=== PATIENT | female | born 1975 | race Caucasian/White ===

== ENCOUNTER 2021-07-02 11:32 | Outpatient (CLI) | payer BC, SELFPAY ==
--- NOTE | 2021-07-02 11:30 | ECG_ITS ---
Measurements Intervals [place] Rate: 82 P: 56 MI: 166 QRS: -28 QRSD: 101 T: 52 QT: 362 QTc: 425 Interpretive Statements SINUS RHYTHM WITH SINUS ARRHYTHMIA POSSIBLE LEFT ATRIAL ENLARGEMENT LOW QRS VOLTAGE IN PRECORDIAL LEADS INCOMPLETE RIGHT BUNDLE BRANCH BLOCK POSSIBLE LEFT VENTRICULAR HYPERTROPHY POOR R WAVE PROGRESSION, ANTERIOR LEADS CONSIDER INFERIOR INFARCT, AGE INDETERMINATE ABNORMAL ECG Electronically Signed On 07-02-2021 12:02:56 CDT by Dharmesh Barraza D.O.
[2021-07-02 12:02] LABS: Basophils Percent Auto 0.5 % (0.2-1.2); Eosinophils Percent Auto 0.5 % (0-4.4); Hematocrit 38.3 % (37.0-47.0); Hemoglobin 12.8 g/dL (12.0-15.0); Immature Granulocyte Absolute 0.02 K/mm3 (0.00-0.031); Immature Granulocyte Percent A 0.2 % (0-0.5); Lymphocytes Percent Auto 24.2 % (18.3-44.2); Mean Corpuscular HGB Conc 33.4 g/dl (32-36); Mean Corpuscular Hemoglobin 30.3 pg (26-34); Mean Corpuscular Volume 90.8 fl (80-100); Mean Platelet Volume 10.2 fl (7.4-10.4); Monocytes Absolute Auto 0.5 K/mm3 (0.1-0.6); Neutrophils Percent Auto 68.6 % (45.5-73.1); Platelet Count Result 312 k/mm3 (150-375); Red Blood Count 4.22 M/mm3 (4.2-5.4); Red Cell Distribution Width 12.5 % (11.5-14.5); White Blood Count 8.7 K/mm3 (4.5-10.0)
== END 2021-07-02 11:33 | disposition home or self-care (01) ==
LOC: ANHSURGERY 11:37
PROVIDERS: Visit Provider Obstetrics & Gynecology
DX: N94.6 Dysmenorrhea, unspecified (principal); I10 Essential (primary) hypertension; Z01.818 Encounter for other preprocedural examination; I45.10 Unspecified right bundle-branch block
CPT/HCPCS: 36415; 85025; 86850; 86900; 86901; 93005

== ENCOUNTER 2021-07-04 03:07 | Day surgery (SDC) | payer BC, SELFPAY ==
[2021-07-02 09:45] VITALS: BMI 33.6
--- NOTE | 2021-07-02 12:34 | P.HP_ITS ---
H&P: HPI History of Present Illness Date/Time: 07/02/21 12:34 46-year-old multiparous admitted for robotic total vaginal hysterectomy and bilateral salpingectomies as well as tension-free vaginal tape. She has had enlarged uterus with heavy bleeding refractory to medical therapy. She complains of stress urinary incontinence. Risks and benefits of these procedures have been reviewed in great detail Chief Complaint: a enlarged uterus stress incontinence Review of Systems Review of Systems: All systems reviewed & are unremarkable except as noted in HPI and below [facility] Social History Social History Smoking status: Never smoker Alcohol intake: never Substance use: never Substance use type: does not use Additional living arrangements comments: CHILDREN Spiritual care concerns: No Meds Home Medications and Allergies Home Medications Medication Instructions Recorded Confirmed Type alprazolam [Xanax] 0.25 mg PO HS PRN 07/02/21 07/02/21 History citalopram [Celexa] 20 mg PO HS 07/02/21 07/02/21 History diclofenac sodium 50 mg PO BID PRN 07/02/21 07/02/21 History lisinopril 20 mg PO HS 07/02/21 07/02/21 History Allergies Allergy/AdvReac Type Severity Reaction Status Date / Time doxycycline Allergy Severe Anaphylaxis Verified 07/02/21 09:43 Exam Const: General: no acute distress Eyes: General: appearance normal, both eyes and all related structures Neck: Neck: supple and no JVD Thyroid: thyroid normal Resp: Effort & Inspection: normal respiratory effort Auscultation: clear to auscultation bilaterally Cardio: Rate: regular rate Rhythm: regular rhythm GI: Inspection: non-distended GI Palp: Yes Soft to palpation, No Tenderness to palpation present (GI) and No Guarding due to palpation present (GI) Auscultation: normal bowel sounds : External Female Exam: normal external appearance Speculum Exam - Vagina: normal appearance of the vagina and vaginal bleeding Speculum Exam - Cervix: normal appearance of the cervix Bimanual exam- vagina & uterus: boggy and enlarged Skin: General skin exam: no rashes or lesions noted Extrem: General: normal to inspection and no edema Psych: Mental Status: mental status grossly normal Affect: normal affect Assessment and Plan Additional Plan impression: Enlarged uterus with bleeding and stress urinary incontinence Plan: Robotic total vaginal hysterectomy and bilateral salpingectomies, cystoscopy, TVT
[2021-07-04] VITALS (11 sets, daily range): BP systolic 130–160; BP diastolic 66–93; PULSE 85–104; RESP 14–18; TEMP 36.6–37.3; O2SAT 95–98; BMI 33.3
--- NOTE | 2021-07-04 07:18 | WPDHPUPDATE1 ---
History and Physical Update Update Date/Time: 07/04/21 07:18 History and Physical has been reviewed, including an updated exam of the patient. There are NO changes in the patient's condition. Risks, benefits, and alternatives have been discussed and questions answered. Patient agrees to proceed with procedure.
--- NOTE | 2021-07-04 08:18 | WPDANESEPPF ---
Anes - Initial Pre Proc Eval Procedure: Operation Date: 07/04/21 09:30 Proposed Procedures p Robotic Assisted Total Vaginal Hysterectomy With Bilateral Salpingectomy - Rito Razo MD s Tension Free Vaginal Taping - Rito Razo MD Date/Time: 07/04/21 08:18 Surgeon: Rito Razo MD Pre Op Diagnosis: Exc Bleeding, Dysmenorrhea, Pelvic Pain, KETAN Patient Data Age: 46 Gender: F Height: 1.7 m Weight: 97.52 kg Allergies Allergy/AdvReac Type Severity Reaction Status Date / Time doxycycline Allergy Severe Anaphylaxis Verified 07/02/21 09:43 Home Medications Medication Instructions Recorded Confirmed Type alprazolam [Xanax] 0.25 mg PO HS PRN 07/02/21 07/02/21 History citalopram [Celexa] 20 mg PO HS 07/02/21 07/02/21 History diclofenac sodium 50 mg PO BID PRN 07/02/21 07/02/21 History lisinopril 20 mg PO HS 07/02/21 07/02/21 History hydrocodone-acetaminophen 1 tablet PO Q4H PRN #30 tablet 07/04/21 Rx Patient hx anesthesia problems: none Family hx anesthesia problems: none Results Review: All pre-operative results and documents have been reviewed as part of the pre-operative evaluation. [facility] Past Medical History Medical History (Updated 07/04/21 @ 08:18 by Rito Rosenthal MD) Anxiety HTN (hypertension) Obesity Surgical History Surgical History (Updated 07/04/21 @ 08:19 by Rito Rosenthal MD) History of section Social History Social History Smoking status: Never smoker Alcohol intake: never Substance use: never Substance use type: does not use Living arrangements: with family Additional living arrangements comments: CHILDREN Spiritual care concerns: No Anes - Eval Final PreProcedure Day of Procedure 07/04/21 08:18 Patient weight: obese Heart: regular rate and rhythm Lungs: clear to auscultation Airway: Mallampati scale class II Neurological: alert and oriented Last oral intake: >/= 8 hours ASA classification: II Emergent: no Anesthetic plan: proceed Anesthesia type and monitoring: general GIVS and standard monitoring Results Review: All pre-operative results and documents have been reviewed as part of the pre-operative evaluation. Informed Consent: The patient's anesthetic plan and its attendant risks and benefits were discussed with the patient/family/POA. Questions were solicited and answers provided to the satisfaction of the patient/family/POA.
[2021-07-04] MEDS: ACETAMINOPHEN 500 MG TABLET 1000 MG PO (08:45)
[2021-07-04] MEDS: KETOROLAC 15 MG/ML VIAL (*BKC) IV PUSH (08:45)
[2021-07-04] MEDS: LACTATED RINGERS 1,000 ML 30 ML IV CONT ×2 (09:12→11:28)
[2021-07-04] MEDS: ceFAZolin 2 GM/D5W 50 ML 2 GM/50 ML BAG IVPB (09:30)
--- NOTE | 2021-07-04 11:21 | W.PM.PROC2 ---
Procedure Note - Detailed Date of Procedure 07/04/21 Pre-op Diagnosis Exc Bleeding, Dysmenorrhea, Pelvic Pain, KETAN Post-op Diagnosis same Procedure Performed Robotic total vaginal hysterectomy and bilateral salpingectomy Cystoscopy Tension-free vaginal tape Surgeon Rito Razo MD Anesthesia general Indications Self 38 old female with enlarged uterus excessive heavy bleeding and stress urinary incontinence Findings Markedly enlarged uterus. Tubes status post tubal ligation. Rather large amount of adhesions anteriorly from the omentum to the anterior abdominal. Normal-appearing ovaries bilaterally. Tubes status post tubal ligation. A small paratubal cyst which was ruptured drained of clear fluid Description of Procedure The patient was prepped draped sterile fashion placed in the dorsal lithotomy position. Under excellent general endotracheal anesthesia weighted speculum placed in posterior fornix of vagina. Anterior lip of the cervix grasped with a single-tooth tenaculum and uterus sounded to 11cm. Serial dilatation with fragmented dilators performed followed by passage of the 10. BRIAN and the 3. Cold. An 18 Mongolian catheter was placed in the bladder draining clear urine. The weighted speculum was removed and the gloves were changed. A supraumbilical incision made the Veress needle passed in the abdomen. The abdomen filled with CO2 gas [id number]. The 8mm trocar advanced in the abdomen downside visualized. No injury seen. Patient placed in Trendelenburg and right left lateral quadrant incisions made and the 8mm trocars advanced under direct visualization assuring no injury. Right upper quadrant incision made the 8mm trocar advanced under direct visualization assuring no injury. The robot was docked. Attention was turned to the commercial counsel. There did large amount of adhesions anteriorly from omentum to the anterior abdominal wall. Using sharp dissection and monopolar cautery with occasional bipolar cautery this was brought down sharply until the uterus could be seen. Posteriorly the cervix and uterus were adherent to omentum and these were were sharply dissected and relieved. The ovaries had a small normal appearance. On the right was a small paratubal cyst and this was cauterized and drained of clear fluid. The left fallopian tube was then sharply dissected away from the ovary. This was repeated on the contralateral side. Next conserving the left ovary the utero-ovarian ligament was clamped, burned, cut. This was brought to the level of the round ligament. The left round ligament was then grasped, burned, cut. Anteriorly a bladder flap was formed by sharply dissecting the peritoneum and reflecting the bladder caudally away from the cervix uterus to the opposite round ligament which was clamped, burned cut. The round ligament was clamped, burned,. Next the right fallopian tube was dissected away from the ovary and tube. The utero-ovarian ligament was clamped, burned, cut the right. This was brought to the level of previously cut round ligament. This conserve the right ovary. The cardinal and broad ligaments on the left were then serially skeletonized clamped burned and cut and brought down lateral edge of the uterus until the uterine vessels could be seen. These were noted to be large tortuous vessels in each was individually clamped, burned and cut. In like fashion cardinal broad ligaments on the right were serially skeletonized clamped, burned, cut and brought down the lateral edge of the cervix and uterus until the uterine vessels could be seen on the right. These were individually clamped, burned, cut and excellent blanching of the uterus was seen. A colpotomy incision was made and the cervix uterus and tubes removed through the vagina. The vagina then closed with continuous running 0V lock from lateral edge to lateral edge back to the midline. Irrigation undertaken until clear Parlin term was placed over the raw surfac
--- NOTE | 2021-07-04 12:46 | PC.NURSE ---
This patient, Teri Roche, was received from PACU per bed to room 283. Patient/family oriented to unit policies and routines
[2021-07-04] MEDS: KETOROLAC 30 MG/ML VIAL (*BKC) IV PUSH (13:52)
[2021-07-04] MEDS: HYDROcodone/acetaminophen (*CRX) 10-325 MG TABLET 1 TAB PO ×4 (13:53→23:16)
[2021-07-04] MEDS: DEXTROSE 5%/LACTATED RINGERS 1,000 ML 125 ML IV CONT (13:54)
[2021-07-04] MEDS: SIMETHICONE 80 MG TAB.CHEW PO ×2 (20:15→23:16)
[2021-07-04] MEDS: IBUPROFEN 600 MG TABLET PO (20:15)
[2021-07-04] MEDS: DOCUSATE SODIUM 100 MG CAPSULE PO (20:15)
[2021-07-04] MEDS: ALPRAZolam (*CRX) 0.25 MG TABLET PO (23:40)
[2021-07-05 03:30] VITALS: BP 121/72; PULSE 88; RESP 18; TEMP 36.4
[2021-07-05] MEDS: SIMETHICONE 80 MG TAB.CHEW PO ×2 (03:30→07:40)
[2021-07-05] MEDS: CALCIUM CARBONATE (TUMS) 500 MG (200 MG ELEMENTAL) (03:30)
[2021-07-05] MEDS: HYDROcodone/acetaminophen (*CRX) 10-325 MG TABLET 1 TAB PO (03:30)
[2021-07-05] MEDS: IBUPROFEN 600 MG TABLET PO (03:30)
[2021-07-05 05:44] LABS: Basophils Percent Auto 0.2 % (0.2-1.2); Hematocrit 30.2 % (37.0-47.0); Hemoglobin 9.7 g/dL (12.0-15.0); Immature Granulocyte Absolute 0.08 K/mm3 (0.00-0.031); Immature Granulocyte Percent A 0.6 % (0-0.5); Lymphocytes Absolute Auto 1.22 K/mm3 (0.9-3.2); Lymphocytes Percent Auto 9.7 % (18.3-44.2); Mean Corpuscular HGB Conc 32.1 g/dl (32-36); Mean Corpuscular Hemoglobin 29.8 pg (26-34); Mean Corpuscular Volume 92.9 fl (80-100); Mean Platelet Volume 10.9 fl (7.4-10.4); Monocytes Absolute Auto 0.8 K/mm3 (0.1-0.6); Monocytes Percent Auto 6.6 % (2.6-8.5); Neutrophils Absolute Auto 10.4 K/mm3 (1.3-6.7); Neutrophils Percent Auto 82.9 % (45.5-73.1); Platelet Count Result 242 k/mm3 (150-375); Red Blood Count 3.25 M/mm3 (4.2-5.4); Red Cell Distribution Width 12.4 % (11.5-14.5); White Blood Count 12.6 K/mm3 (4.5-10.0)
--- NOTE | 2021-07-05 07:06 | PM.DS ---
DS: Admitting Diagnosis Discharge Date 07/05/2020 Admitting Diagnosis enlarged uterus/ pelvic pain/ stress urinary incontinence DS: Summary Hospital Course Hospital Course: patient was admitted for robotic hysterectomy bilateral salpingo-oophorectomy and TVT. Her hospital course was unremarkable. She remained afebrile. She was up, voiding without difficulty, ambulating, and generally without complaints. Routine discharge instructions were given and she is to follow-up in 2 weeks time Time Spent with Patient Time attestation: Total time spent providing and/or coordinating discharge services: Exam Const: General: no acute distress Eyes: General: appearance normal, both eyes and all related structures Neck: Neck: supple and no JVD Thyroid: thyroid normal Resp: Effort & Inspection: normal respiratory effort Auscultation: clear to auscultation bilaterally Cardio: Rate: regular rate Rhythm: regular rhythm GI: Inspection: non-distended GI Palp: Yes Soft to palpation, No Tenderness to palpation present (GI) and No Guarding due to palpation present (GI) Auscultation: normal bowel sounds : General: Yes bladder normal to palpation External Female Exam: normal external appearance Speculum Exam - Vagina: normal vaginal discharge and No vaginal bleeding Speculum Exam - Cervix: nontender Bimanual exam- vagina & uterus: bladder normal to palpation and No Cervical tenderness present OB/external & speculum: No vaginal bleeding Skin: General skin exam: no rashes or lesions noted Extrem: General: normal to inspection and no edema Psych: Mental Status: mental status grossly normal Affect: normal affect DS: Data Data Completed and Pending Pending studies at discharge: Pending at discharge 07/04/21 10:17 Surgical [PTH] Routine Labs on day of discharge: Labs from last 24 hours 07/05/21 03:44 WBC 12.6 H RBC 3.25 L Hgb 9.7 L D Hct 30.2 L MCV 92.9 MCH 29.8 MCHC 32.1 RDW 12.4 Plt Count 242 MPV 10.9 H Immature Gran % (Auto) 0.6 H Neut % (Auto) 82.9 H Lymph % (Auto) 9.7 L Hendry % (Auto) 6.6 Eos % (Auto) 0.0 Baso % (Auto) 0.2 Lymph # (Auto) 1.22 [place] # (Auto) 0.8 H Eos # (Auto) 0.0 Baso # (Auto) 0.0 Abs Immat Gran (auto) 0.08 H Absolute Neuts (auto) 10.4 H Absolute Nucleated RBC 0.0 Nucleated RBC % 0.0 Discharge Plan Discharge Patient Disposition: Home, Self-Care Stand Alone Forms: General Discharge Instructions Follow-up/Referrals: Rito Razo MD [Physician] - Discharge Medications: New hydrocodone-acetaminophen 5-325 mg tablet 1 tablet PO Q4H PRN (Reason: pain) Qty: 30 RF: 0 No Action lisinopril 20 mg Tablet 20 mg PO HS RF: 0 alprazolam [Xanax] 0.25 mg Tablet 0.25 mg PO HS PRN (Reason: Anxiety) RF: 0 citalopram [Celexa] 20 mg Tablet 20 mg PO HS RF: 0 diclofenac sodium 50 mg Tablet,Delayed Release (Dr/Ec) 50 mg PO BID PRN (Reason: Pain) RF: 0
--- NOTE | 2021-07-05 07:08 | PM.GYNPNOP ---
CLINICAL RESEARCH MANAGER - A/P Postoperative Procedures: Procedures Operation Date: 07/04/21 09:30 Actual Procedure Side Surgeon p Robotic Assisted Total Vaginal Hysterectomy With Bilateral Salpingectomy Bilateral Rito Razo MD s Tension Free Vaginal Taping Rito Razo MD Postoperative day: 1 Postoperative status: doing well Postoperative plan: routine post-op care and discharge Time Spent With Patient Time: Total time spent is greater than 50% in coordination of care (as documented) at patient's floor/unit and/or counseling patient: Time with patient: less than 15 minutes CLINICAL RESEARCH MANAGER- PN:Subj Post-Op Subjective Date/time seen: 07/05/21 07:08 Subjective: patient reports feeling better and patient has no complaints Review of Systems Review of Systems: All systems reviewed & are unremarkable except as noted in HPI and below Exam Const: General: no acute distress Eyes: General: appearance normal, both eyes and all related structures Neck: Neck: supple and no JVD Thyroid: thyroid normal Resp: Effort & Inspection: normal respiratory effort Auscultation: clear to auscultation bilaterally Cardio: Rate: regular rate Rhythm: regular rhythm GI: Inspection: non-distended GI Palp: Yes Soft to palpation, No Tenderness to palpation present (GI) and No Guarding due to palpation present (GI) Auscultation: normal bowel sounds Skin: General skin exam: no rashes or lesions noted Extrem: General: normal to inspection and no edema Psych: Mental Status: mental status grossly normal Affect: normal affect CLINICAL RESEARCH MANAGER - PN: Obj Data Vital Signs Vital Signs: Vital Signs - 24 hr 07/04/21 09:29 07/04/21 11:28 07/04/21 11:40 Temperature 99.1 F 98.4 F Pulse Rate 85 101 H 95 Respiratory Rate 14 16 17 Blood Pressure 133/68 160/88 H 132/79 Pulse Oximetry 97 96 96 07/04/21 11:55 07/04/21 12:10 07/04/21 12:25 Temperature Pulse Rate 96 94 91 Respiratory Rate 18 18 17 Blood Pressure 156/93 H 148/85 H 144/79 H Pulse Oximetry 97 95 96 07/04/21 12:38 07/04/21 12:50 07/04/21 17:20 Temperature 98.8 F 97.9 F Pulse Rate 93 92 95 Respiratory Rate 17 18 18 Blood Pressure 143/78 H 150/85 H 130/66 Pulse Oximetry 97 97 07/04/21 20:25 07/04/21 23:15 07/05/21 03:30 Temperature 98.5 F 98.2 F 97.6 F Pulse Rate 102 H 104 H 88 Respiratory Rate 16 16 18 Blood Pressure 130/82 136/80 121/72 Pulse Oximetry 98 97 Intake/Output Intake/Output: Intake & Output 07/02/21 07/03/21 07/04/21 07/05/21 23:59 23:59 23:59 23:59 Intake Total 2320 240 Output Total 1220 300 Balance 1100 -60 Meds/Results Medications: Active Medications Generic Name Dose Route Start Last Admin Trade Name Freq PRN Reason Stop Dose Admin Hydrocodone Bitart/Acetaminophen 1 tab 07/04/21 12:42 Hydrocodone/Acetaminophen (*Crx) 5-325 Mg Tablet PO Q3H PRN Pain Rated 5 or Less Hydrocodone Bitart/Acetaminophen 1 tab 07/04/21 12:42 07/05/21 03:30 Hydrocodone/Acetaminophen (*Crx) 10-325 Mg Tablet PO 1 tab Q3H PRN Administration Pain Rated 6 or Greater Docusate Sodium 100 mg 07/04/21 17:00 07/04/21 20:15 Docusate Sodium 100 Mg Capsule PO 100 mg BID BRICE Administration Enoxaparin Sodium 40 mg 07/05/21 09:00 Enoxaparin 40 Mg/0.4 Ml Syringe SUB-Q DAILY BRICE Dextrose/Lactated Ringer's 1,000 mls @ 125 mls/hr 07/04/21 12:42 07/04/21 20:25 Dextrose 5%/Lactated Ringers IV CONT Infused .Q8H BRICE Infusion Ibuprofen 600 mg 07/04/21 12:42 07/05/21 03:30 Ibuprofen 600 Mg Tablet PO 600 mg Q6H PRN Administration Cramping Ketorolac Tromethamine 30 mg 07/04/21 12:42 07/04/21 13:52 Ketorolac 30 Mg/Ml Vial (*Bkc) IV PUSH 07/09/21 12:41 30 mg Q6H PRN Administration Pain Rated 4-6 Naloxone HCl 0.1 mg 07/04/21 12:42 Naloxone Hcl 0.4 Mg/Ml Vial IV PUSH Q2M PRN Respiratory rate less than 10 Ondansetron HCl 4 mg 07/04/21 12:42 Ondansetron Inj 4 Mg/2 Ml Vial IV
[2021-07-05] MEDS: DOCUSATE SODIUM 100 MG CAPSULE PO (07:40)
[2021-07-05] MEDS: ENOXAPARIN 40 MG/0.4 ML SYRINGE SUB-Q (07:40)
[2021-07-05 08:00] VITALS: BP 123/76; PULSE 81; RESP 18; TEMP 36.8
--- NOTE | 2021-07-05 10:40 | PC.NURSE ---
Self care discharge instructions given including follow up visit with MD. Pt. verbalizes understanding. No questions voiced. Very pleasant and desiring discharge.
== END 2021-07-05 11:23 | disposition home or self-care (01) ==
LOC: ANHSURGERY 07:21 → ANHOB2 12:44
PROVIDERS: Visit Provider Obstetrics & Gynecology
PROC: (CPT 58552; principal; 2021-07-04 09:30)
PROC: 0TSD0ZZ Reposition Urethra, Open Approach (ICD-10-PCS; CPT 58552; 2021-07-04 09:30)
DX: N93.9 Abnormal uterine and vaginal bleeding, unspecified (principal); N94.6 Dysmenorrhea, unspecified; N80.0 Endometriosis of uterus; D25.1 Intramural leiomyoma of uterus; R10.2 Pelvic and perineal pain; N39.3 Stress incontinence (female) (male); N73.6 Female pelvic peritoneal adhesions (postinfective); N83.8 Other noninflammatory disorders of ovary, fallopian tube and broad ligament
CPT/HCPCS: 58552; 57288; S2900; 36415; 85025; 88307; 99199; A9270; C1771; J0690; J1100; J1170; J1650; J1885; J2250; J2405; J2704; J2710; J3010; J7030; J7120; J7121

== ENCOUNTER 2021-08-13 14:37 | Outpatient (CLI) | payer BC, SELFPAY ==
--- NOTE | 2021-08-13 | ECG_ITS ---
Measurements Intervals [place] Rate: 74 P: 56 MD: 170 QRS: -18 QRSD: 110 T: 29 QT: 418 QTc: 465 Interpretive Statements SINUS RHYTHM POSSIBLE LEFT ATRIAL ENLARGEMENT INCOMPLETE RIGHT BUNDLE BRANCH BLOCK LOW QRS VOLTAGE IN PRECORDIAL LEADS BORDERLINE R WAVE PROGRESSION, ANTERIOR LEADS BORDERLINE T WAVE ABNORMALITY- ANT/INF LEADS BASELINE WANDER- I, II, AVR, AVF BORDERLINE ECG Electronically Signed On 08-13-2021 15:14:36 LOG SKIDDER by Dharmesh Barraza D.O.
== END 2021-08-13 14:38 | disposition home or self-care (01) ==
LOC: ANHCARD 14:40
PROVIDERS: Visit Provider Obstetrics & Gynecology
DX: R55 Syncope and collapse (principal); I45.10 Unspecified right bundle-branch block
CPT/HCPCS: 93005

== ENCOUNTER → 2021-09-08 16:49 | Outpatient (REF) | payer BC, SELFPAY | LOC: ANHLAB 16:49 | PROVIDERS: Visit Provider Nurse Practitioner | DX: L98.9 Disorder of the skin and subcutaneous tissue, unspecified (principal); D22.39 Melanocytic nevi of other parts of face | CPT/HCPCS: 88305 ==

== ENCOUNTER 2022-06-02 16:08 | Outpatient (CLI) | payer BC, SELFPAY ==
--- NOTE | ~2022-06-02 | XR_ITS ---
XR sacrum coccyx min 2V DATE: 06/02/2022 16:26 INDICATION: Trauma, sacroiliac pain TECHNIQUE: AP, angled AP and lateral views COMPARISON: None FINDINGS: No fracture or bone destruction of the sacrum or coccyx. The sacral iliac joints are intact , without erosive change or ankylosis. Mild degenerative disease at L3-4. IMPRESSION: No significant abnormality of the sacrum or coccyx Reviewed, dictated and finalized at location B.
== END 2022-06-02 16:09 | disposition home or self-care (01) ==
LOC: ANHIMG 16:16
PROVIDERS: PCP Obstetrics & Gynecology; Visit Provider Obstetrics & Gynecology
DX: M53.3 Sacrococcygeal disorders, not elsewhere classified (principal)
CPT/HCPCS: 72220

== ENCOUNTER 2023-06-27 08:47 | Emergency (ER) | payer BC, SELFPAY ==
[2023-06-27 08:55] VITALS: BP 154/78; PULSE 60; RESP 20; TEMP 36.6; O2SAT 100
--- NOTE | 2023-06-27 09:37 | ED.GENADULT ---
HPI - General Adult General Chief complaint: Urogenital-Female Stated complaint: urinary issue Source: patient Mode of arrival: ambulatory Limitations: no limitations History of Present Illness HPI narrative: Patient presents for evaluation of low back pain and right-sided abdominal pain. Symptom onset 2 days ago. 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 She cannot identify any specific injury. pain in the back is constant, rated 8/10 severity, described as aching. Right upper quadrant pain is rated 4/10 severity without descriptive quality. She denies any fever, chills, nausea, vomiting, urinary symptoms, vaginal bleeding or discharge. No radicular pain. She is concerned she may have a UTI. Related Data Home Medications Medication Instructions Recorded Confirmed alprazolam 0.25 mg tablet (Xanax) 0.25 mg PO HS PRN Anxiety 07/02/21 06/27/23 citalopram 20 mg tablet (Celexa) 20 mg PO HS 07/02/21 06/27/23 lisinopril 20 mg tablet 20 mg PO HS 07/02/21 06/27/23 Allergies Allergy/AdvReac Type Severity Reaction Status Date / Time doxycycline Allergy Severe Anaphylaxis Verified 06/27/23 09:02 Review of Systems Review of Systems: CONSTITUTIONAL: Denies fever, chills, or sweats. EYES: Denies visual changes, redness, or discharge. ENT: Denies rhinorrhea, congestion, sore throat, or otalgia. CARDIOVASCULAR: Denies chest pain, palpitations, or edema. RESPIRATORY: Denies cough or dyspnea. GASTROINTESTINAL: Reports RUQ pain. Denies nausea, vomiting, or diarrhea. GENITOURINARY: Denies dysuria or hematuria. SKIN: Denies rash or itching. MUSCULOSKELETAL: Reports low back pain. Denies joint pain, or myalgia. NEUROLOGIC: Denies headache, numbness, dizziness, or weakness. PSYCHIATRIC: Denies anxiety or depression. [facility] Past Medical History Medical History Anxiety HTN (hypertension) Obesity Surgical History Surgical History History of section Family History Family History (Updated 06/27/23 @ 09:43 by DIVINE Reed, ) Mother Family history non-contributory Social History Social History (Updated 06/27/23 @ 09:44 by JOCELYNE ReedP, ) Smoking status: Never smoker Alcohol intake: never Substance use: never Substance use type: does not use Living arrangements: with family Additional living arrangements comments: CHILDREN Gender identity (if verbalized by the patient): Female Spiritual care concerns: No Exam Narrative: GENERAL: Well-appearing, well-nourished, and in no acute distress. HEAD: Normocephalic, atraumatic. EYES: PERRLA and EOMI. ENT: Nares clear, no rhinorrhea or epistaxis. Mucous membranes moist. Oropharynx without tonsillar hypertrophy exudate or other lesions. Bilateral TMs pearly flores nonbulging NECK: Supple. No adenopathy or masses. No carotid bruits or JVD CHEST: Clear to auscultation. No respiratory distress. No wheezes rales or rhonchi HEART: Regular rate and rhythm. No murmur heard. Normal peripheral pulses. ABDOMEN: Soft, nondistended, normal active bowel sounds. Right upper quadrant tenderness without rebound or guarding BACK: No midline bony or paraspinous tenderness. No CVA tenderness EXTREMITIES: Normal range of motion. No edema. SKIN: Warm, dry, no rash. NEURO: No focal deficits. Alert and oriented x3. PSYCH: Normal mood and affect. Course Course Emergency Course: this is a 48-year-old female who presented for evaluation of low back pain and right upper quadrant pain with concerns that she had a UTI. Urine here today not consistent with infectious process. Etiology unclear. Due to RUQ pain and tenderness I recommended she go to the ER for further evaluation. She was agreeable to this plan. I contacted [facility] and spoke with physician assistant manager bilingual, Candi Plaza
== END 2023-06-27 09:35 | disposition short-term general hospital (02) ==
PROVIDERS: Emergency Provider Nurse Practitioner; PCP Obstetrics & Gynecology
DX: R10.11 Right upper quadrant pain (principal); I10 Essential (primary) hypertension; E66.9 Obesity, unspecified; Z68.32 Body mass index [BMI] 32.0-32.9, adult; F41.9 Anxiety disorder, unspecified
CPT/HCPCS: 81003; 87086; 99213; G0463

== ENCOUNTER 2023-06-27 10:09 | Emergency (ER) | payer BC, SELFPAY ==
[2023-06-27] VITALS (13 sets, daily range): BP systolic 141–167; BP diastolic 76–92; PULSE 61–89; RESP 14–18; TEMP 36.6–36.7; O2SAT 97–100
--- NOTE | ~2023-06-27 | CT_ITS ---
EXAMINATION: CT abdomen pelvis w con DATE: 06/27/2023 11:35 INDICATION: Flank pain. Nausea. TECHNIQUE: Computed tomography (CT) of the abdomen and pelvis was performed with 100 mL Omnipaque 350 intravenous contrast. Automated exposure control and iterative reconstruction technique were employe d. The dose-length product was 835.36 mGy-cm. COMPARISON: None. FINDINGS: The visualized portions of the lung bases demonstrate mild atelectasis. No pleural effusion . The heart size is normal. No pericardial effusion. There is diffuse hepatic steatosis. The spleen i s normal. There is a 5.4 x 4.6 cm mass abutting the uncinate process of the pancreas and the inferior vena cava and the aorta. There is fat stranding adjacent to the mass. The adrenal glands are normal. There are cysts in the kidneys measuring up to 3.1 cm on the right. There is an infraumbilical ventr al hernia containing fat. There is diverticulosis of the colon without evidence of diverticulitis. Th ere are no dilated loops of bowel. The appendix is normal. There is aortocaval and left paracolic lym phadenopathy. For example, a left para-parotid node measures 1.8 x 1.5 cm. There is no ascites. There is mild thoracic spondylosis. IMPRESSION: 1. Mass between the pancreas, inferior vena cava, and aorta. This finding may be an enlarged aortocav al lymph node suspicious for malignancy or a pancreatic mass such as a pseudocyst or pancreatic adeno carcinoma. Consider abdomen MRI without and with contrast to determine if this mass is cystic or john d. 2. Abdominal lymphadenopathy, which may be reactive lymphadenopathy or metastatic disease or lymphoma . 3. Infraumbilical ventral hernia containing fat. Reviewed, dictated and finalized at location A. IMPRESSION: 1. Mass between the pancreas, inferior vena cava, and aorta. This finding may b e an enlarged aortocaval lymph node suspicious for malignancy or a pancreatic m ass such as a pseudocyst or pancreatic adenocarcinoma. Consider abdomen MRI wit hout and with contrast to determine if this mass is cystic or solid. 2. Abdominal lymphadenopathy, which may be reactive lymphadenopathy or metastat ic disease or lymphoma. 3. Infraumbilical ventral hernia containing fat.
[2023-06-27 10:36] LABS: Appearance Urine Clear (Clear); Bilirubin Urine Negative (Negative); Blood Urine Negative (Negative); Color Urine Yellow (Yellow); Glucose Urine UA Negative (Negative); Ketones Urine Negative (Negative); Leukocyte Esterase Ur Negative LEU/UL (Negative); Nitrate Urine Negative (Negative); Protein Urine Negative (Negative); Specific Grav Ur 1.023 (1.001-1.035); pH Urine 5.5 (5.0-9.0)
--- NOTE | 2023-06-27 10:39 | ED.BACK ---
HPI - Back Pain/Injury General Chief Complaint: Back Pain/Injury Stated Complaint: kidney pain Time Seen by Provider: 06/27/23 10:18 Source: patient Mode of arrival: ambulatory Limitations: no limitations History of Present Illness HPI Narrative: This is a 48-year-old female that presents to the emergency department for mid back pain. Ongoing over the last couple of days. No recent injuries or trauma. Pain is associated with nausea. It is achy and constant in nature. She took Tylenol this morning with little relief. Initially seen at urgent care and sent here for further evaluation. Denies fevers, vomiting, shortness of breath, diarrhea, dysuria, or hematuria. Related Data Home Medications Medication Instructions Recorded Confirmed alprazolam 0.25 mg tablet (Xanax) 0.25 mg PO HS PRN Anxiety 07/02/21 06/27/23 citalopram 20 mg tablet (Celexa) 20 mg PO HS 07/02/21 06/27/23 lisinopril 20 mg tablet 20 mg PO HS 07/02/21 06/27/23 Allergies Allergy/AdvReac Type Severity Reaction Status Date / Time doxycycline Allergy Severe Anaphylaxis Verified 06/27/23 09:02 Review of Systems Review of Systems: CONSTITUTIONAL: Denies fever CARDIOVASCULAR: Denies chest pain, or edema. RESPIRATORY: Denies dyspnea. GASTROINTESTINAL: Reports nausea. Denies abdominal pain, vomiting, or diarrhea. GENITOURINARY: Denies dysuria or hematuria. SKIN: Denies rash MUSCULOSKELETAL: Reports back pain, joint pain, and myalgia. All systems reviewed & are unremarkable except as noted in HPI and below PMFSH Past Medical History Medical History Anxiety HTN (hypertension) Obesity Surgical History Surgical History History of section Family History Family History (Updated 06/27/23 @ 09:43 by DIVINE Reed, ) Mother Family history non-contributory Social History Social History (Updated 06/27/23 @ 09:44 by DIVINE Reed, ) Smoking status: Never smoker Alcohol intake: never Substance use: never Substance use type: does not use Living arrangements: with family Additional living arrangements comments: CHILDREN Gender identity (if verbalized by the patient): Female Spiritual care concerns: No Exam Narrative: GENERAL: Well-appearing, well-nourished, and in no acute distress. HEAD: Normocephalic, atraumatic. EYES: EOMI. CHEST: Clear to auscultation. No respiratory distress. No wheezes rales or rhonchi HEART: Regular rate and rhythm. No murmur heard. Normal peripheral pulses. ABDOMEN: Soft, nontender, nondistended, normal active bowel sounds. EXTREMITIES: Normal range of motion. No edema. SKIN: Warm, dry, no rash. NEURO: No focal deficits. Alert and oriented x3. PSYCH: Normal mood and affect Course Course Emergency Course: Patient and family updated on workup. All questions answered. Prefers further evaluation inpatient Consultations Consultation #1: Spoke with Dr. Gallegos about patient and workup. Recommends further evaluation at a tertiary care facility Date: 06/27/23 Consultation #2: Spoke with Dr. Cristobal, [facility], about patient and workup who accepts transfer Date: 06/27/23 Vital Signs Vital signs: Vital Signs Temperature 97.8 F 06/27/23 10:15 Pulse Rate 76 06/27/23 10:15 Respiratory Rate 18 06/27/23 10:15 Blood Pressure 141/90 H 06/27/23 10:15 Pulse Oximetry 97 06/27/23 10:15 Oxygen Delivery Room Air 06/27/23 10:15 Temperature 98.0 F 06/27/23 15:59 Pulse Rate 78 06/27/23 15:59 Respiratory Rate 18 06/27/23 15:59 Blood Pressure 148/84 H 06/27/23 15:59 Pulse Oximetry 98 06/27/23 15:59 Oxygen Delivery Room Air 06/27/23 10:15 MDM - Back Pain/Injury MDM Narrative Medical decision making narrative: Patient presents to the ER for mid back pain present over the last couple of days. She is afebri
[2023-06-27 10:47] LABS: Basophils Percent Auto 0.4 % (0.2-1.2); Eosinophils Absolute Auto 0.1 K/mm3 (0-0.3); Eosinophils Percent Auto 0.9 % (0-4.4); Hemoglobin 14.3 g/dL (12.0-15.0); Immature Granulocyte Absolute 0.02 K/mm3 (0.00-0.031); Immature Granulocyte Percent A 0.2 % (0-0.5); Lymphocytes Absolute Auto 1.57 K/mm3 (0.9-3.2); Lymphocytes Percent Auto 19.5 % (18.3-44.2); Mean Corpuscular HGB Conc 33.3 g/dl (32-36); Mean Corpuscular Hemoglobin 30.5 pg (26-34); Mean Corpuscular Volume 91.7 fl (80-100); Mean Platelet Volume 10.7 fl (7.4-10.4); Monocytes Absolute Auto 0.5 K/mm3 (0.1-0.6); Monocytes Percent Auto 5.8 % (2.6-8.5); Neutrophils Absolute Auto 5.9 K/mm3 (1.3-6.7); Neutrophils Percent Auto 73.2 % (45.5-73.1); Platelet Count Result 211 k/mm3 (150-375); Red Blood Count 4.69 M/mm3 (4.2-5.4); Red Cell Distribution Width 12.2 % (11.5-14.5); White Blood Count 8.1 K/mm3 (4.5-10.0)
[2023-06-27] MEDS: ONDANSETRON INJ 4 MG/2 ML VIAL IV PUSH (10:48)
[2023-06-27] MEDS: MORPHINE SULFATE (*CRX) 4 MG/ML INJ IV PUSH (10:48)
[2023-06-27 10:56] LABS: Alanine Aminotransferase 26 U/L (6-35); Albumin Level 4.2 g/dL (3.5-5.1); Alkaline Phosphatase 60 U/L (38-126); Anion Gap 6 mmol/L (8-16); Aspartate Amino Transferase 30 U/L (14-36); Bilirubin,Total 0.9 mg/dL (0.2-1.3); Blood Urea Nitrogen 15 mg/dL (7-17); Calcium 8.7 mg/dL (8.4-10.2); Carbon Dioxide 27 mmol/L (22-30); Chloride 104 mmol/L (98-107); Estimated CRCL calculation 112 ml/min; Estimated Glomerular Filt Rate > 60; Glucose 124 mg/dL (65-110); Lipase 75 U/L (23-300); Potassium 4.2 mmol/L (3.4-5.0); Sodium 137 mmol/L (137-145)
[2023-06-27 10:59] LABS: Add Urine Microscopic? NO
[2023-06-27 11:05] LABS: INR 0.9; Partial Thromboplastin Time 29.2 SECONDS (22.3-36.8)
[2023-06-27 11:15] LABS: D Dimer 0.44 ug/mL (<0.48)
[2023-06-27] MEDS: LORazepam (*CRX) 0.5 MG TABLET PO (13:22)
[2023-06-27] MEDS: HYDROcodone/acetaminophen (*CRX) 5-325 MG TABLET 1 TAB PO (13:42)
[2023-06-27] MEDS: IBUPROFEN 600 MG TABLET PO (15:53)
== END 2023-06-27 17:08 | disposition short-term general hospital (02) ==
PROVIDERS: Emergency Provider Physician Assistant; PCP Obstetrics & Gynecology
DX: R19.06 Epigastric swelling, mass or lump (principal); I10 Essential (primary) hypertension; E66.9 Obesity, unspecified; Z68.32 Body mass index [BMI] 32.0-32.9, adult; F41.9 Anxiety disorder, unspecified; K43.9 Ventral hernia without obstruction or gangrene
CPT/HCPCS: 36415; 74177; 80053; 81003; 83690; 85025; 85380; 85610; 85730; 87086; 87088; 96374; 96375; 99285; A9270; J2270; J2405; Q9967

== ENCOUNTER 2023-07-12 08:14 | Outpatient (CLI) | payer BC, SELFPAY ==
[2023-07-12 10:46] LABS: Hepatitis B Surface Antigen Negative (Negative)
== END 2023-07-12 08:15 | disposition home or self-care (01) ==
LOC: ANHLAB 08:16
PROVIDERS: Visit Provider Internal Medicine Hematology & Oncology
DX: C82.93 Follicular lymphoma, unspecified, intra-abdominal lymph nodes (principal); Z11.59 Encounter for screening for other viral diseases
CPT/HCPCS: 36415; 87340; 88365

== ENCOUNTER 2023-08-31 10:41 | Outpatient (CLI) | payer BC, SELFPAY ==
--- NOTE | ~2023-08-31 | XR_ITS ---
EXAMINATION: XR abdomen/kub 1V INDICATION: Abdominal pain and fatigue TECHNIQUE: Supine views of the abdomen were obtained on 2 radiographs. COMPARISON: None FINDINGS: The bowel gas pattern is normal. There is no free intraperitoneal gas. No dilated loops of bowel are identified. The visualized osseous structures are unremarkable. Phleboliths are noted in th e pelvis. IMPRESSION: 1. No radiographic correlate for the patient's symptoms. Reviewed, dictated and finalized at location L. MASTER
== END 2023-08-31 10:42 | disposition home or self-care (01) ==
PROVIDERS: PCP Obstetrics & Gynecology; Visit Provider Internal Medicine Hematology & Oncology
DX: R10.9 Unspecified abdominal pain (principal)
CPT/HCPCS: 74018

== ENCOUNTER → 2023-09-01 08:58 | Outpatient (CLI) | payer BC, SELFPAY ==
--- NOTE | ~2023-09-01 | US_ITS ---
EXAMINATION: US abdomen complete DATE: 09/01/2023 10:02 INDICATION: Abdominal pain, unspecified TECHNIQUE: Multiple grayscale and Doppler ultrasound images of the abdomen were obtained. COMPARISON: CT, 06/27/2023 FINDINGS: There is a 3.1 x 1.6 cm cystic lesion abutting the uncinate process of the pancreas which i s decreased in size since the comparison CT. The liver is normal with normal echogenicity and echotex ture. No surface nodularity. Normal hepatopetal flow in the main portal vein. The gallbladder is norm al with no abnormal wall thickening, pericholecystic fluid or stones. The normal common bile duct chin sures 6 mm. There was no sonographic Hedrick sign. The visualized portions of the aorta and inferior v yareli cava are normal. The spleen is normal in appearance and measures 9.8 cm. The right kidney measures 11.6 x 4.3 x 5.1 cm . The left kidney measures 9.9 x 4.4 x 5.5 cm. The kidneys demonstrate normal parenchymal echogenicit y. There is no hydronephrosis. IMPRESSION: 1. Interval decrease in size of a cystic mass abutting the uncinate process of the pancreas. Reviewed, dictated and finalized at location B. GER LSW
== END ==
PROVIDERS: PCP Obstetrics & Gynecology; Visit Provider Internal Medicine Hematology & Oncology
DX: R10.9 Unspecified abdominal pain (principal)
CPT/HCPCS: 76700

== ENCOUNTER 2023-09-20 11:23 | Outpatient (CLI) | payer BC, SELFPAY ==
[2023-09-20 13:11] LABS: Toxigenic C. Diff POSITIVE (NEGATIVE)
== END 2023-09-20 11:24 | disposition home or self-care (01) ==
LOC: ANHLAB 11:24
PROVIDERS: PCP Obstetrics & Gynecology; Visit Provider Internal Medicine Hematology & Oncology
DX: R19.7 Diarrhea, unspecified (principal)
CPT/HCPCS: 87493

== ENCOUNTER 2023-09-27 09:38 | Emergency (ER) | payer BC, SELFPAY ==
[2023-09-27] VITALS (10 sets, daily range): BP systolic 143–167; BP diastolic 79–93; PULSE 67–80; RESP 15–18; TEMP 36.7; O2SAT 97–99
--- NOTE | ~2023-09-27 | CT_ITS ---
EXAMINATION: CT abdomen pelvis w con DATE: 09/27/2023 11:50 INDICATION: Lower abdominal pain. History of diverticulitis. TECHNIQUE: Computed tomography (CT) of the abdomen and pelvis was performed with 100 CC Omnipaque 350 intravenous contrast. Automated exposure control and iterative reconstruction technique were employe d. Exam dose: 716.69 mGy-cm total exam DLP. COMPARISON: 09/01/2023 abdominal ultrasound examination [address] CT abdomen pelvis FINDINGS: The lung bases are clear of infiltrate or consolidation. No pericardial or pleural effusion . Diffuse hepatic steatosis. No hepatic, splenic space-occupying mass lesion. Results considerable interval decreased size of a mass in the region of the uncinate process of the p ancreas, currently measuring approximately 17 x 34 mm compared to 46 x 54 mm on 06/27/2023. There are several right renal cysts, measuring approximately 7 mm, 7 x 5 mm and 31 mm dimension. No urinary tract calculus or hydroureteronephrosis Normal caliber of the abdominal aorta. No intraperitoneal or retroperitoneal or pelvic mass lesion or adenopathy or ascites. The urinary bladder is unremarkable. Status post hysterectomy. There is prominent pericolic fat stranding in the sigmoid area. There are numerous diverticula of the sigmoid:. There is soft tissue thickening of the sigmoid:. No abscess cavity is identified. The find ings are consistent with acute sigmoid diverticulitis. Normal appendix. No bowel obstruction, bowel wall thickening, pneumatosis or intraperitoneal free air is noted otherwise. There are some fat containing ventral abdominal wall hernias. Fat-containing umbilical hernia. Included skeletal structures are unremarkable. IMPRESSION: Acute sigmoid diverticulitis; no abscess is identified Normal appendix Small sliding hiatal hernia Hepatic steatosis Considerably diminished size of soft tissue mass lesion in the region of the uncinate process of the pancreas since 06/27/2023 Reviewed, dictated and finalized at Location A. Reviewed, dictated and finalized at location B. PRODUCER IMPRESSION: Acute sigmoid diverticulitis; no abscess is identified Normal appendix Small sliding hiatal hernia Hepatic steatosis Considerably diminished size of soft tissue mass lesion in the region of the un cinate process of the pancreas since 06/27/2023
--- NOTE | 2023-09-27 10:58 | ED.GENADULT ---
[facility] - General Adult General Chief complaint: Abdominal Pain Stated complaint: abd pain Time Seen by Provider: 09/27/23 10:37 Source: patient Mode of arrival: ambulatory Limitations: no limitations History of Present Illness HPI narrative: This is a 48-year-old female with PMH of lymphoma, diverticulitis, HTN who presents to the ED with chief complaint of lower abdominal pain for the past several days. Reports that she had her last chemo treatment and August. Reports last time she had a CT scan she was found to have diverticulitis and flushed on Cipro and Flagyl. She had persistent diarrhea with these medications and ended up testing positive for C diff. she was given metronidazole again for the C diff by her cancer doctor. She feels that she is still having lots of diarrhea his concern for a recurrent bout of diverticulitis today. Denies fevers, chills, vomiting, chest pain, shortness of breath, urinary problems. Denies GI bleeding symptoms. Related Data Home Medications Medication Instructions Recorded Confirmed citalopram 20 mg tablet (Celexa) 40 mg PO HS 07/02/21 08/24/23 lisinopril 20 mg tablet 20 mg PO HS 07/02/21 08/24/23 Allergies Allergy/AdvReac Type Severity Reaction Status Date / Time doxycycline Allergy Severe Anaphylaxis Verified 09/27/23 09:40 Review of Systems Review of Systems: All systems as dictated in [facility] Past Medical History Medical History Anxiety HTN (hypertension) Obesity Surgical History Surgical History History of section Family History Family History (Updated 06/27/23 @ 09:43 by DIVINE Reed, ) Mother Family history non-contributory Social History Social History (Updated 06/27/23 @ 09:44 by DIVINE Reed, ) Smoking status: Never smoker Alcohol intake: never Substance use: never Substance use type: does not use Living arrangements: with family Additional living arrangements comments: CHILDREN Gender identity (if verbalized by the patient): Female Spiritual care concerns: No Exam Narrative: GENERAL: Well-appearing, well-nourished, and in no acute distress. HEAD: Normocephalic, atraumatic. EYES: PERRLA and EOMI. ENT: Nares clear, no rhinorrhea or epistaxis. Mucous membranes moist. Oropharynx without tonsillar hypertrophy exudate or other lesions. NECK: Supple. No adenopathy or masses. CHEST: IV port in place. No respiratory distress. Clear to auscultation. No wheezes rales or rhonchi HEART: Regular rate and rhythm. No murmur heard. Normal peripheral pulses. ABDOMEN: Lower abdominal tenderness across the lower abdomen. Soft, otherwise nontender, nondistended, normal active bowel sounds. Negative peritoneal signs. MSK: Normal range of motion. No edema. SKIN: Warm, dry, no rash. NEURO: Alert and oriented x3. No focal deficits. PSYCH: Normal mood and affect. Course Vital Signs Vital signs: Vital Signs Temperature 98.0 F 09/27/23 09:46 Pulse Rate 67 09/27/23 09:46 Respiratory Rate 18 09/27/23 09:46 Blood Pressure 143/89 H 09/27/23 09:46 Pulse Oximetry 98 09/27/23 09:46 Oxygen Delivery Room Air 09/27/23 09:46 Temperature 98.0 F 09/27/23 09:46 Pulse Rate 70 09/27/23 12:40 Respiratory Rate 15 09/27/23 12:40 Blood Pressure 144/87 H 09/27/23 12:40 Pulse Oximetry 99 09/27/23 12:40 Oxygen Delivery Room Air 09/27/23 09:46 Medical Decision Making MDM Narrative Medical decision making narrative: This is a 48-year-old female who presents to the ED with chief complaint of lower abdominal pain. Vitals are normal. Exam does reveal tenderness across the lower abdomen. She currently is being treated with chemo for lymphoma. Recent history of diverticulitis and also C diff. Lab work shows a normal white count and normal CMP. Urinalys
[2023-09-27 11:08] LABS: Basophils Percent Auto 0.4 % (0.2-1.2); Eosinophils Absolute Auto 0.1 K/mm3 (0-0.3); Eosinophils Percent Auto 1.5 % (0-4.4); Hematocrit 40.1 % (37.0-47.0); Hemoglobin 13.1 g/dL (12.0-15.0); Immature Granulocyte Absolute 0.02 K/mm3 (0.00-0.031); Immature Granulocyte Percent A 0.3 % (0-0.5); Lymphocytes Absolute Auto 0.85 K/mm3 (0.9-3.2); Lymphocytes Percent Auto 11.9 % (18.3-44.2); Mean Corpuscular HGB Conc 32.7 g/dl (32-36); Mean Corpuscular Hemoglobin 29.9 pg (26-34); Mean Corpuscular Volume 91.6 fl (80-100); Monocytes Absolute Auto 0.8 K/mm3 (0.1-0.6); Monocytes Percent Auto 10.5 % (2.6-8.5); Neutrophils Absolute Auto 5.4 K/mm3 (1.3-6.7); Neutrophils Percent Auto 75.4 % (45.5-73.1); Platelet Count Result 213 k/mm3 (150-375); Red Blood Count 4.38 M/mm3 (4.2-5.4); White Blood Count 7.1 K/mm3 (4.5-10.0)
[2023-09-27 11:15] LABS: Appearance Urine Clear (Clear); Bilirubin Urine Negative (Negative); Blood Urine Negative (Negative); Color Urine Yellow (Yellow); Glucose Urine UA Negative (Negative); Ketones Urine Negative (Negative); Leukocyte Esterase Ur Negative LEU/UL (Negative); Nitrate Urine Negative (Negative); Protein Urine Negative (Negative); Specific Grav Ur 1.017 (1.001-1.035); Urobilinogen Urine 0.2 mg/dL (<2.0); pH Urine 7.5 (5.0-9.0)
[2023-09-27 11:18] LABS: Alanine Aminotransferase 27 U/L (6-35); Albumin Level 3.7 g/dL (3.5-5.1); Alkaline Phosphatase 51 U/L (38-126); Anion Gap 4 mmol/L (8-16); Aspartate Amino Transferase 29 U/L (14-36); Bilirubin,Total 0.7 mg/dL (0.2-1.3); Blood Urea Nitrogen 11 mg/dL (7-17); Calcium 8.5 mg/dL (8.4-10.2); Carbon Dioxide 29 mmol/L (22-30); Chloride 103 mmol/L (98-107); Estimated CRCL calculation 113 ml/min; Estimated Glomerular Filt Rate > 60; Glucose 93 mg/dL (65-110); Lipase 93 U/L (23-300); Sodium 136 mmol/L (137-145)
[2023-09-27 11:19] LABS: Add Urine Microscopic? NO
[2023-09-27] MEDS: HEPARIN SODIUM LOCK FLUSH 500 UNITS/5 ML SYRINGE IV PUSH (12:55)
== END 2023-09-27 13:04 | disposition home or self-care (01) ==
PROVIDERS: Emergency Provider Physician Assistant; PCP Internal Medicine Hematology & Oncology
DX: K57.32 Diverticulitis of large intestine without perforation or abscess without bleeding (principal); C85.90 Non-Hodgkin lymphoma, unspecified, unspecified site; I10 Essential (primary) hypertension; F41.9 Anxiety disorder, unspecified; E66.9 Obesity, unspecified; Z68.32 Body mass index [BMI] 32.0-32.9, adult; K44.9 Diaphragmatic hernia without obstruction or gangrene; K76.0 Fatty (change of) liver, not elsewhere classified; Z79.60 Long term (current) use of unspecified immunomodulators and immunosuppressants
CPT/HCPCS: 36415; 74177; 80053; 81003; 83690; 85025; 96374; 99284; Q9967

== ENCOUNTER 2024-01-03 13:40 | Emergency (ER) | payer BC, SELFPAY ==
--- NOTE | 2024-01-03 13:45 | PC.NURSE ---
Pt declined to be seen due to wait time and immunocompromised and not wanting to be around a bunch of sick people. Pt ambulated out in NAD.
== END 2024-01-03 14:58 | disposition left against medical advice (07) ==
LOC: ANHED 13:51
PROVIDERS: PCP Internal Medicine Hematology & Oncology
DX: Z53.21 Procedure and treatment not carried out due to patient leaving prior to being seen by health care provider (principal)
CPT/HCPCS: 99199

== ENCOUNTER 2024-01-06 15:33 | Outpatient (CLI) | payer BC, SELFPAY ==
--- NOTE | ~2024-01-06 | CT_ITS ---
EXAMINATION: CT abdomen pelvis w con DATE: 01/06/2024 16:55 INDICATION: Lymphoma. TECHNIQUE: Computed tomography (CT) of the abdomen and pelvis was performed with 100 mL Omnipaque 350 intravenous contrast. Automated exposure control and iterative reconstruction technique were employe d. The dose-length product was 976.99 mGy-cm. COMPARISON: CT abdomen pelvis 09/27/23 FINDINGS: The visualized portions of the lung bases demonstrate mild atelectasis. No pleural effusion . The heart size is normal. No pericardial effusion. There is mild pectus excavatum. There is diffuse hepatic steatosis. The gallbladder, spleen, pancreas, adrenal glands, and left kidney are normal. Th ere are cysts in the right kidney measuring up to 3.0 cm. There is diverticulosis of the colon withou t evidence of diverticulitis. There are no dilated loops of bowel. The appendix is normal. There is a ortocaval and left para-aortic lymphadenopathy. For example, new confluent retroperitoneal lymphadeno caroline measures 6.7 x 3.5 cm. There is no free intraperitoneal fluid. IMPRESSION: 1. Worsened retroperitoneal lymphadenopathy, consistent with lymphoma. Reviewed, dictated and finalized at location E.
== END 2024-01-06 15:34 | disposition home or self-care (01) ==
LOC: ANHIMG 15:37
PROVIDERS: PCP Internal Medicine Hematology & Oncology; Visit Provider Obstetrics & Gynecology
DX: C85.90 Non-Hodgkin lymphoma, unspecified, unspecified site (principal)
CPT/HCPCS: 74177; Q9967

== ENCOUNTER 2024-01-20 09:00 | Outpatient (CLI) | payer BC, SELFPAY ==
--- NOTE | ~2024-01-20 | PE_ITS ---
EXAMINATION: PET skull to mid thigh DATE: 01/20/2024 11:24 INDICATION: Follicular lymphoma of intra-abdominal lymph nodes. TECHNIQUE: Blood glucose level was 114 mg/dL. 10.472 mCi of 18-fluorodeoxyglucose (18-FDG) was admini stered i.v. Low dose computed tomography (CT) images were acquired from the base of the brain to the proximal thighs for attenuation correction and anatomic localization. Automated exposure control was employed. Dose-length product (DLP) was 1175 mGy-cm. Positron emission tomography (PET) images were a cquired in the same distribution. COMPARISON: CT abdomen and pelvis 01/06/2024, 09/27/2023 FINDINGS: Head/neck: There is a 10 x 14 mm left supraclavicular lymph node with increased activity. There is a right internal jugular port with tip in superior vena cava. Chest: There is mild atelectasis in the lungs. No pleural effusion. The heart size is normal. No victoria cardial effusion. Abdomen/pelvis/proximal thighs: There is diffuse hepatic steatosis. The gallbladder, spleen, pancreas , adrenal glands, and left kidney are normal. There are cysts in right kidney measuring up to 2.6 cm. There is diverticulosis of the colon without evidence of diverticulitis. There are no dilated loops of bowel. There is confluent aortocaval and left para-aortic lymphadenopathy measuring 8.7 x 3.3 cm w ith maximum SUV of 22.7. There is a 3.0 x 1.8 cm aortocaval node abutting the uncinate process of the pancreas with increased activity. There is no free intraperitoneal fluid. There is no osseous malign nettie. IMPRESSION: 1. Retroperitoneal and left supraclavicular lymphadenopathy with increased activity with worsening of the retroperitoneal lymphadenopathy from 09/27/2023, consistent with lymphoma. Reviewed, dictated and finalized at location A. IMPRESSION: 1. Retroperitoneal and left supraclavicular lymphadenopathy with increased acti vity with worsening of the retroperitoneal lymphadenopathy from 09/27/2023, cons istent with lymphoma.
[2024-01-20 09:24] LABS: Glucose Point of Care 114 mg/dl (65-105)
== END 2024-01-20 09:01 | disposition home or self-care (01) ==
PROVIDERS: PCP Obstetrics & Gynecology; Visit Provider Internal Medicine Hematology & Oncology
DX: C82.93 Follicular lymphoma, unspecified, intra-abdominal lymph nodes (principal)
CPT/HCPCS: 78815; A9552

== ENCOUNTER 2024-01-21 09:07 | Outpatient (CLI) | payer BC, SELFPAY ==
--- NOTE | 2024-01-17 09:31 | PC.NURSE ---
Pre Radiology instructions Report to the outpatient florinda springer on date _[id number]_ at time _0900_ for procedure Time: _1100_ YOU MAY BE MONITORED AT HOSPITAL FOR UP TO 4 HOURS AFTER YOUR PROCEDURE. A visitor will be allowed to accompany the patient into the hospital. You and your visitor will be asked to self-screen and do not enter if you have any COVID symptoms. A mask is OPTIONAL within the hospital. Patients are to have no food or drink 6 hours prior to procedure time Driving will be restricted after the procedure, you must have a person to drive you home. Labs will be drawn in preop area and once reviewed, you will be taken to radiology area for procedure. When the procedure is completed, you will be taken to outpatient where you will be monitored for several hours. You may have one visitor in this area. Other than holding anti-coagulants, patient may take other medication(s) as scheduled. Prior to your appointment date patients are instructed to hold anti-coagulants after discussing with ordering provider to stop. If unable to discontinue anti-coagulants please notify radiologist. ? No aspirin or warfarin (Coumadin) for 7 days prior to the procedure. ? No clopidogrel (Plavix), ticagrelor (Brilinta), prasugrel (Effient) or dabigatran (Pradaxa) for 5 days prior to the procedure. ? No rivaroxaban (Xarelto), apixaban (Eliquis), dipyridamole (Aggrenox or Persantine) or cilostazol (Pletal) for 2 days prior to the procedure. Medications to discontinue per physician: __None Date to take last dose: Please leave all valuables, including medications, at home the day of procedure. The hospital will not accept responsibility for valuables. Wear comfortable, loose fitting clothing.? Follow any additional instructions given to you from ordering provider. Telephone instructions given to Nikole and asked if any additional questions and then verbalized understanding. Patient advised to call scheduling provider office or registration scheduling [phone] if any additional questions.
[2024-01-17 09:34] VITALS: BMI 34.0
[2024-01-21] VITALS (7 sets, daily range): BP systolic 138–177; BP diastolic 80–109; PULSE 75–86; RESP 16–18; TEMP 36.7; O2SAT 97–98; BMI 33.7
--- NOTE | ~2024-01-21 | CT_ITS ---
EXAMINATION: CT biopsy lymph node DATE: 01/21/2024 12:03 INDICATION: Lymphoma of intra-abdominal lymph node. TECHNIQUE: The procedure including the risks, benefits, and alternatives was discussed with the patie nt. Risks discussed included bleeding and infection. The patient verbalized understanding of the risk s and agreed to proceed. The skin overlying the liver was prepped and draped in usual sterile fashio n. Anesthetic was administered with 1% lidocaine subcutaneously. A 16 gauge outer needle was advanc ed under CT guidance into the left para-aortic lymphadenopathy. An 18 gauge core biopsy needle was th en used to obtain 6 core biopsy specimens. The mA was adjusted according to patient size. Iterative r econstruction technique was employed. The dose-length product was 209.50 mGy-cm. The needle was remov ed and the entry site was cleaned and dressed. There were no immediate complications. FINDINGS: CT images demonstrate the outer needle tip in confluent retroperitoneal lymphadenopathy. IMPRESSION: 1. CT-guided core needle biopsy of left para-aortic lymphadenopathy. Reviewed, dictated and finalized at location A.
--- NOTE | 2024-01-21 09:50 | SUR.PREOP ---
0950- Call to Dr. Webb patient complaining of generalized pain to back, groin and down bilateral lower extremities. Patient is requesting pain medication for pain rated 9/10 on numeric scale. Per patient she called Dr. Gallegos oncologist this AM in regards to pain control being poor and he recommended patient go to ER. Patient reports she has not taken pain medication since night prior at 2200. Per Dr. Webb RN can place orders and give one dose of Amorita 7.5-325MG.
[2024-01-21] MEDS: HYDROcodone/acetaminophen (*CRX) 7.5-325 MG TABLET 1 TAB PO (09:57)
[2024-01-21 10:02] LABS: INR 0.9; Prothrombin Time 12.6 Seconds (11.1-14.7)
[2024-01-21] MEDS: ACETAMINOPHEN 500 MG TABLET 1000 MG PO (12:36)
--- NOTE | 2024-01-21 13:45 | SUR.PHASEII ---
Notified Dr. Webb of patient's elevated BP. Dr. Webb stated patient can be discharged and should take her BP medications she missed this morning when she gets home.
== END 2024-01-21 14:05 | disposition home or self-care (01) ==
PROVIDERS: PCP Obstetrics & Gynecology; Referring Provider Internal Medicine Hematology & Oncology; Visit Provider Radiology Diagnostic Radiology
PROC: (CPT 77012; principal; 2024-01-21 11:00)
DX: C85.83 Other specified types of non-Hodgkin lymphoma, intra-abdominal lymph nodes (principal)
CPT/HCPCS: 36415; 38505; 77012; 85610; 88184; 88305; 88341; 88342; 88360; 88365; A9270